=== PATIENT | female | born 1990 | race Caucasian/White ===

== ENCOUNTER 2016-07-30 13:06 | Inpatient (IN) ==
[2016-07-30] MEDS ORDERED: ONDANSETRON 4 MG/2 ML VIAL IV PRN (13:29)
[2016-07-30 13:47] LABS: Basophils % 0.1 % (0.0-0.8); Eosinophils # 0.2 10*3/uL (0.0-0.87); Eosinophils % 2.2 % (0.00-10.9); Hematocrit 29.7 VOL% (35.7-47.0); Hemoglobin 9.2 GM/DL (12.0-16.0); Immature Granulocytes % 0.8 %; Immature Granulocytes Absolute 0.07 #; Lymphocytes # 1.7 10*3/uL (1.4-4.0); Lymphocytes % 18.9 % (21.3-54.2); Mean Corpuscular Hemoglobin 24 PG (27-34); Monocytes # 0.8 10*3/uL (0.11-0.8); Monocytes % 8.7 % (1.7-12.7); Neutrophils # 6.4 10*3/uL (1.4-7.4); Neutrophils % 69.3 % (38.7-73.9); Platelet Count 164 10*3/uL (130-400); Red Blood Count 3.81 10*6/uL (3.8-5.5); Red Cell Distribution Width 15.6 % (9.3-17.3); White Blood Count 9.2 10*3/uL (4.5-13.71)
[2016-07-30 13:56] LABS: INR 0.9; PT Patient Result 9.4 SECS; Partial Thromboplastin Time 26.9 SECS (0-40)
[2016-07-30 14:08] LABS: Alanine Aminotransferase 15 U/L (13-56); Albumin 2.6 G/DL (3.4-5.0); Alkaline Phosphatase 141 U/L (45-117); Aspartate Amino Transferase 17 U/L (0-37); Bilirubin,Total < 0.39 MG/DL (0.2-1.0); Blood Urea Nitrogen 7 MG/DL (7-18); Calcium 8.5 MG/DL (8.5-10.1); Glucose 80 MG/DL (74-106); Osmolality,Calculated 282.8 MOS/KG (273-304); Sodium 144 MMOL/L (136-145); Total Protein 6.1 G/DL (6.4-8.3); Uric Acid 5.1 MG/DL (2.6-6.0)
[2016-07-30] MEDS: BUTORPHANOL 2 MG/ML VIAL IV PRN (20:40)
[2016-07-30] MEDS: LACTATED RINGERS 1,000 ML IV SCH ×4 (20:58→23:05)
[2016-07-30] MEDS ORDERED: PROMETHAZINE 25 MG/1 ML VIAL IM ONE (21:48)
[2016-07-30] MEDS ORDERED: diphenhydrAMINE 50 MG/1 ML VIAL IV PRN ×2 (21:48)
[2016-07-30] MEDS ORDERED: fentaNYL 2 MCG/ROPIV 0.2% EPID 150 ML EPIDURAL SCH (21:48)
[2016-07-30] MEDS ORDERED: ePHEDrine 50 MG/ML AMP IV PRN (21:48)
[2016-07-30] MEDS ORDERED: hydrOXYzine HCL 25 MG/1 ML VIAL IM PRN (21:48)
[2016-07-30] MEDS ORDERED: FAMOTIDINE 20 MG/2 ML VIAL IV ONE (21:50)
[2016-07-30] MEDS ORDERED: CITRIC ACID/SODIUM CITRATE 30 ML UDCUP PO ONE (21:50)
[2016-07-30] MEDS ORDERED: ePHEDrine 50 MG/ML AMP ONE (22:10)
[2016-07-30] MEDS ORDERED: LIDOCAINE 1% 50 ML VIAL ONE (22:55)
[2016-07-30] MEDS ORDERED: OXYTOCIN/LR 20 UNIT/1,000 ML BAG IV ONE (22:55)
[2016-07-30] MEDS ORDERED: METHYLERGONOVINE 0.2 MG/1 ML AMP ONE (22:55)
[2016-07-30] MEDS ORDERED: miSOPROStol 200 MCG TABLET ONE (22:55)
--- NOTE | 2016-07-30 23:40 | History and Physical Update ---
History and Physical Update - Dictation Physical: refer to scanned H&P - Physical Exam Mental Status: alert and oriented Heart: regular rate and rhythm Lung: clear to auscultation Abdomen: within normal limits Vitals: within normal limits (26yo at 39 wks admitted for cytotec induction , followed the last week with variable BPs. EFW on US last week was 8#13oz. Discussed DA with pt and family. Pt wishes to proceed. PIH labs today wnl. )
[2016-07-31] MEDS: BUTORPHANOL 2 MG/ML VIAL IV PRN (00:22)
[2016-07-31] MEDS ORDERED: MEASLES/MUMPS/RUBELLA VACCINE 0.5 ML VIAL SUBCUT ONE (00:44)
[2016-07-31] MEDS ORDERED: BENZOCAINE 20%/MENTHOL 0.5% SPRAY 56 GM CAN TOP PRN (00:44)
[2016-07-31] MEDS ORDERED: DIPH/TET/ACEL PERT BOOSTER VACCINE 0.5 ML VIAL IM ONE (00:44)
[2016-07-31] MEDS ORDERED: RHO(D) IMMUNE GLOBULIN 300 MCG SYRINGE IM ONE (00:44)
[2016-07-31] MEDS ORDERED: ONDANSETRON 4 MG/2 ML VIAL IV PRN (00:44)
[2016-07-31] MEDS ORDERED: ACETAMINOPHEN 325 MG TABLET PO PRN (00:44)
[2016-07-31] MEDS ORDERED: OXYTOCIN/LR 20 UNIT/1,000 ML BAG IV ONE ×2 (00:44→04:03)
[2016-07-31] MEDS ORDERED: WITCH HAZEL PADS 100/JAR TOP PRN (00:44)
[2016-07-31] MEDS ORDERED: HYDROCORTISONE 2.5% RECTAL CREAM 30 GM TUBE TOP PRN (00:44)
[2016-07-31] MEDS ORDERED: BISACODYL 10 MG SUPP RECTAL PRN (00:44)
[2016-07-31] MEDS ORDERED: oxyCODONE/ACETAMINOPHEN 5-325 MG TABLET PO PRN (00:44)
[2016-07-31] MEDS ORDERED: LANOLIN 50% CREAM 0.3 OZ TUBE TOP PRN (00:44)
[2016-07-31 06:44] LABS: Basophils % 0.1 % (0.0-0.8); Eosinophils % 0.1 % (0.00-10.9); Hematocrit 32.4 VOL% (35.7-47.0); Hemoglobin 9.7 GM/DL (12.0-16.0); Immature Granulocytes % 0.7 %; Immature Granulocytes Absolute 0.14 #; Lymphocytes # 1.7 10*3/uL (1.4-4.0); Lymphocytes % 8.8 % (21.3-54.2); Mean Corpuscular HGB Conc 29.9 GM/DL (32-36); Mean Corpuscular Hemoglobin 24 PG (27-34); Mean Corpuscular Volume 78.5 FL (87-102); Mean Platelet Volume 12.3 FL (9.6-12.0); Monocytes # 1.3 10*3/uL (0.11-0.8); Monocytes % 6.6 % (1.7-12.7); Neutrophils # 16.4 10*3/uL (1.4-7.4); Neutrophils % 83.7 % (38.7-73.9); Platelet Count 168 10*3/uL (130-400); Red Blood Count 4.13 10*6/uL (3.8-5.5); Red Cell Distribution Width 15.7 % (9.3-17.3); White Blood Count 19.6 10*3/uL (4.5-13.71)
[2016-07-31] MEDS: IBUPROFEN 800 MG TABLET PO PRN ×2 (09:14→17:46)
[2016-07-31] MEDS: oxyCODONE/ACETAMINOPHEN 5-325 MG TABLET PO PRN ×2 (13:05→14:15)
[2016-07-31] MEDS: DOCUSATE SODIUM 100 MG CAPSULE PO SCH (20:46)
[2016-08-01 07:35] VITALS: BP 120/72
--- NOTE | 2016-08-01 08:17 | OB/GYN Progress Note ---
Assessment and Plan (1) Perineal laceration with delivery, second degree Status: Acute Assessment and plan: Routine care Current Visit: Yes WIRE ANNEALER - PN: Subj Interval history: PPD#1 Doing well Exam WIRE ANNEALER - Constitutional Vitals: Vital Signs Temp Pulse Resp BP Pulse Ox 08/01/16 07:34 96.1 F L 69 18 120/72 97 08/01/16 04:00 98.0 F 69 20 132/78 98 08/01/16 00:00 98.1 F 68 20 137/74 98 07/31/16 20:00 97.4 F L 63 20 135/71 98 07/31/16 15:40 98.4 F 69 20 133/79 98 07/31/16 14:30 98.0 F 78 20 137/72 96 07/31/16 13:55 97.2 F L 71 20 134/78 General appearance: normal weight, no acute distress - Head Head exam: Present: normal inspection, normocephalic - Eye Eye exam: Present: EOMI - Respiratory Respiratory exam: Present: clear to auscultation bilaterally - Cardiovascular Cardiovascular exam: Present: regular rate and rhythm - GI/Abdominal GI/Abdominal exam: Present: soft (fundus firm, nontender) - Extremities Exam Extremities exam: Present: normal inspection - Neurological Exam Neurological exam: Present: alert, oriented X3 - Psychiatric Psychiatric exam: Present: normal affect, normal mood - Skin Skin exam: Present: normal color, warm Results - Labs CBC & BMP: 07/31/16 06:17 07/30/16 13:41 Lab Results: I have reviewed the past 24 hour labs
[2016-08-01] MEDS: DOCUSATE SODIUM 100 MG CAPSULE PO SCH (09:45)
--- NOTE | 2016-08-01 13:20 | Pathology Report from [facility] ---
ACCESSION # : [id number] PATIENT NAME : Shell Vidal ORDERING DR : EMMY GRANT CLINICAL HX: IUP @ 39.3 wks, large for gestational age, induction of labor POST-OP DX: Same SPECIMEN INFO: Placenta GROSS DESCRIPTION: Received fresh labeled with the patient's name and consists of a 509 gram placenta measuring 18.6 x 19.0 x 2.5 cm. membranes are pink -benedict opaque with clotted blood. The umbilical cord is pericentrally inserted, contains three vessels and measures 26.2 cm. The surface is blue-pierce, partially circumarginate. The maternal surface is beefy red with mild disrupted cotyledons and adherent clotted blood. Scattered calcifications and some areas of fibrosis are present. Sectioning shows no gross abnormalities. Sections submitted: A membranes and cord, B and maternal surfaces. DIAGNOSIS FOR SHELL VIDAL: PLACENTA, MEMBRANES, UMBILICAL CORD: Focal placental infarction with mild intervillous blood and attached fibrin. Tri- vessel umbilical cord, pericentrally inserted. Membranes with focal acute and chronic inflammation and attached blood. SERVICE DATE: 07/31/2016 REPORT DATE: 08/01/2016 PATHOLOGIST: David Middleton
--- NOTE | 2016-08-01 20:12 | Discharge Summary ---
Hospital Course - Hospital Course Hospital Course: Pt admitted on the early afternoon of 07/30/16 for induction with gestational HTN at 39 wks. She delivered just after midnight on 07/31/16 without complications. Her course was unremarkable except that she did very well. She was requesting discharge on the late afternoon of 08/01/16. Diagnosis - Discharge Diagnosis (1) Perineal laceration with delivery, second degree Status: Acute Specialty Discharge - Follow Up or Referrals Follow up with: Jennifer Shukla DO [Physician] - 09/11/16 1:00 pm Discharge Plan - Discharge Data Condition at Discharge: Stable Discharge Diet: regular diet Activity: other (pelvic rest x 6 wks) Hygiene: may shower Weight Bearing at Discharge: full weight bearing Driving: no restrictions (if not taking narcotics) Contact your physician if you experience:: fever over 101, Difficulty voiding, Redness or swelling, Nausea/Vomiting, Shortness of breath, Bleeding, pain uncontrolled by pain medications - Discharge Medications No Action Multivitamin () [ Vitamin] 1 tablet PO DAILY - Follow Up or Referral Follow Up: Jennifer Shukla DO [Physician] - 09/11/16 1:00 pm - Forms/Instructions Instructions: Perineal Care (DC), Vaginal Delivery (DC), Bleeding (DC) Exam - Constitutional Vitals: Period Temp Pulse Resp BP Sys/Espinoza Pulse Ox Last 24 Hr 96.1 F-98.1 F 68-69 18-20 120-137/72-78 97-98 General appearance: normal weight, no acute distress - Head Head exam: Present: normal inspection, normocephalic - Eye Eye exam: Present: EOMI - Respiratory Respiratory exam: Present: clear to auscultation bilaterally - Cardiovascular Cardiovascular exam: Present: regular rate and rhythm - GI/Abdominal GI/Abdominal exam: Present: soft (fundus firm, nontender) - Extremities Exam Extremities exam: Present: normal inspection - Neurological Exam Neurological exam: Present: alert, oriented X3 - Psychiatric Psychiatric exam: Present: normal affect, normal mood - Skin Skin exam: Present: normal color, warm DS: Provider Date of admission: 07/30/16 13:06 Primary care physician: . No PCP Attending physician on admission: Jennifer Shukla DO Consults: 07/30/16 13:29 Consult to Anesthesiology [CONS] Routine Consulting Provider: Reason for Anesthesiology: Epidural Consult Comment: Epidural for pain managment 07/31/16 00:44 Consult to Vehicle Safety Inspector [CONS] Routine Consult Vehicle Safety Inspector: Breast Feeding Discharging clinician: Jennifer Shukla DO Expected date of discharge: 07/31/16
--- NOTE | 2016-08-02 10:46 | Physician Query Form ---
CLICK EDIT DOCUMENT TO SELECT QUERY ANSWER --> OK --> SIGN Jennifer Preciado RN, CCDS Certified Clinical Digital Publishing Specialist Director of Clinical Documentation W) [phone] (f) [phone] [email or web address]: Make your selection(s) from the choices in EACH section by typing an "x" and enter comments in the comment section. Please use your independent medical judgment in providing your response. This request does not imply that any particular answer is desired or expected. CLINICAL INDICATORS: (Providers should not edit this section) Patient delivered viable male with assistance of Kiwi vacuum assistance due to "ineffective pushing and excessive discomfort". Can you please specify the reason for vacuum assistance? Based on the above, could you clarify the appropriate diagnosis, if significant , that supports the above abnormalities and additional evaluation, monitoring, and/or treatment rendered: (x ) Maternal exhaustion ( ) distress (x) Incoordinate uterine contractions/pushing ( ) Labor complications, please specify: (x ) Other, please specify: ( ) Clinically unable to determine COMMENTS: Despite epidural pt was having significant discomfort with contractions and was not moving baby well with her pushing. She was offered Kiwi vacuum assistance and she was eager for assistance. Use of terms such as suspected, likely, or probable (associated with a specific diagnosis that is being evaluated, monitored, or treated as if it exists) are acceptable and can be restated in the discharge summary if not ruled out. MTDD
== END 2016-08-01 16:15 | disposition home or self-care (01) | DRG 775 ==
LOC: N.LD 13:06 → N.OB 07-31 13:46
PROVIDERS: ADMIT Obstetrics & Gynecology; ATTEND Obstetrics & Gynecology

== ENCOUNTER 2022-08-29 05:13 | Inpatient (IN) ==
[2022-08-29] MEDS ORDERED: TRANEXAMIC ACID 1,000 MG in SODIUM CHLORIDE 0.9% 100 ML IV PRN (05:28)
[2022-08-29] MEDS ORDERED: miSOPROStoL 200 MCG TABLET RECTAL PRN (05:28)
[2022-08-29] MEDS ORDERED: METHYLERGONOVINE 0.2 MG/1 ML AMP IM PRN (05:28)
[2022-08-29] MEDS ORDERED: OXYTOCIN/LR 20 UNIT/1,000 ML BAG IV ONE ×2 (05:28→08:52)
[2022-08-29] MEDS ORDERED: CARBOPROST TROMETHAMINE 250 MCG/ML AMP IM PRN (05:28)
[2022-08-29] MEDS ORDERED: FAMOTIDINE 20 MG/2 ML VIAL IV ONE (05:28)
[2022-08-29] MEDS ORDERED: CITRIC ACID/SODIUM CITRATE 30 ML UDCUP PO ONE (05:28)
[2022-08-29] MEDS ORDERED: LACTATED RINGERS 1,000 ML IV SCH ×2 (05:30→09:00)
[2022-08-29 06:04] LABS: Basophils % 0.2 % (0.0-0.8); Eosinophils # 0.2 10*3/uL (0.0-0.87); Eosinophils % 2.1 % (0.00-10.9); Hematocrit 29.8 VOL% (35.7-47.0); Hemoglobin 9.1 GM/DL (12.0-16.0); Immature Granulocytes % 0.9 %; Immature Granulocytes Absolute 0.08 #; Lymphocytes # 2.1 10*3/uL (1.4-4.0); Lymphocytes % 23.4 % (21.3-54.2); Mean Corpuscular HGB Conc 30.5 GM/DL (32-36); Mean Corpuscular Volume 77.6 FL (87-102); Mean Platelet Volume 13.3 FL (9.6-12.0); Monocytes # 0.7 10*3/uL (0.11-0.8); Monocytes % 7.4 % (1.7-12.7); NRBC # 0.03 10*3/uL; Platelet Count 162 T/CUMM (130-400); Red Blood Count 3.84 MC/CUMM (3.8-5.5); Red Cell Distribution Width 15.9 % (9.3-17.3); White Blood Count 9.05 T/CUMM (4-12)
[2022-08-29 06:17] LABS: Alanine Aminotransferase 13 U/L (13-56); Albumin 2.5 G/DL (3.4-5.0); Alkaline Phosphatase 97 U/L (45-117); Aspartate Amino Transferase 13 U/L (0-37); Bilirubin,Total < 0.39 MG/DL (0.20-1.00); Blood Urea Nitrogen 11 MG/DL (7-18); Calcium 9.1 MG/DL (8.5-10.1); Carbon Dioxide 19 MMOL/L (21-32); Chloride 110 MMOL/L (98-107); Glucose 94 MG/DL (74-106); Osmolality,Calculated 279.3 MOS/KG (273-304); Potassium 3.9 MMOL/L (3.5-5.1); Sodium 141 MMOL/L (136-145); Total Protein 6.3 G/DL (6.4-8.2)
[2022-08-29] MEDS ORDERED: buprenorphine HCL 0.3 MG/ML VIAL ONE (06:44)
[2022-08-29] MEDS ORDERED: PHENYLEPHRINE 1 MG/10 ML SYRINGE IV ONE (06:46)
[2022-08-29] MEDS ORDERED: ONDANSETRON 4 MG/2 ML VIAL ONE (06:46)
[2022-08-29 08:20] LABS: Cord Venous Blood HCO3 22.5 MMOL/L; Cord Venous Blood PCO2 30.3 MMHG; Cord Venous Blood PO2 25.1
[2022-08-29 08:20] LABS: Bacteria,Urine Occasional /HPF (Few); Mucus,Urine Occasional /LPF (Occasional); RBC,Urine 1 /HPF (0-4); Squamous Epithelial Cell,Urine Occasional /HPF (0-10)
[2022-08-29 08:21] LABS: Bilirubin,Urine Negative (Negative); Blood, Urine Negative (Negative); Glucose,Urine (UA) Negative (Negative); Ketones,Urine Trace mg/dL (Negative); Nitrite,Urine Negative (Negative); Protein,Urine 100 mg/dL (Negative); Urine Appearance Clear (Clear); Urine Color Yellow (Yellow); Urine Specific Gravity 1.025 (1.001-1.035); Urine Urobilinogen 0.2 eU/dL (<2.0)
[2022-08-29] MEDS ORDERED: ACETAMINOPHEN INJ 1,000 MG/100 ML VIAL IV ONE (08:48)
[2022-08-29] MEDS ORDERED: KETOROLAC 30 MG/1 ML VIAL ONE (08:48)
[2022-08-29] MEDS ORDERED: ONDANSETRON 4 MG/2 ML VIAL IV PRN (08:52)
[2022-08-29] MEDS ORDERED: RHO(D) IMMUNE GLOBULIN 300 MCG SYRINGE IM ONE (08:52)
[2022-08-29] MEDS ORDERED: SIMETHICONE CHEW 80 MG TABLET PO PRN (08:52)
[2022-08-29] MEDS ORDERED: ACETAMINOPHEN 325 MG TABLET PO PRN (08:52)
[2022-08-29] MEDS: MULTIVITAMIN (PRENATAL) TABLET PO SCH (12:06)
[2022-08-29] MEDS ORDERED: KETOROLAC 30 MG/1 ML VIAL IV ONE (16:30)
[2022-08-29 20:40] LABS: Basophils % 0.3 % (0.0-0.8); Eosinophils # 0.2 10*3/uL (0.0-0.87); Eosinophils % 1.3 % (0.00-10.9); Hematocrit 25.3 VOL% (35.7-47.0); Hemoglobin 7.7 GM/DL (12.0-16.0); Immature Granulocytes % 0.5 %; Immature Granulocytes Absolute 0.06 #; Lymphocytes % 17.2 % (21.3-54.2); Mean Corpuscular HGB Conc 30.4 GM/DL (32-36); Mean Corpuscular Volume 78.1 FL (87-102); Mean Platelet Volume 12.6 FL (9.6-12.0); Monocytes # 0.8 10*3/uL (0.11-0.8); Monocytes % 6.9 % (1.7-12.7); Neutrophils % 73.8 % (38.7-73.9); Platelet Count 119 T/CUMM (130-400); Red Blood Count 3.24 MC/CUMM (3.8-5.5); Red Cell Distribution Width 15.9 % (9.3-17.3); White Blood Count 11.37 T/CUMM (4-12)
[2022-08-29] MEDS: DOCUSATE SODIUM 100 MG CAPSULE PO SCH (20:58)
[2022-08-30] MEDS: DOCUSATE SODIUM 100 MG CAPSULE PO SCH ×3 (01:16→21:03)
[2022-08-30 03:30] LABS: Basophils % 0.3 % (0.0-0.8); Eosinophils # 0.2 10*3/uL (0.0-0.87); Eosinophils % 1.9 % (0.00-10.9); Hemoglobin 7.5 GM/DL (12.0-16.0); Immature Granulocytes % 0.6 %; Immature Granulocytes Absolute 0.06 #; Lymphocytes % 19.3 % (21.3-54.2); Mean Corpuscular Volume 78.4 FL (87-102); Mean Platelet Volume 12.4 FL (9.6-12.0); Monocytes # 0.8 10*3/uL (0.11-0.8); Monocytes % 8.1 % (1.7-12.7); Neutrophils % 69.8 % (38.7-73.9); Platelet Count 115 T/CUMM (130-400); Red Blood Count 3.19 MC/CUMM (3.8-5.5); Red Cell Distribution Width 15.9 % (9.3-17.3); White Blood Count 10.37 T/CUMM (4-12)
[2022-08-30] MEDS ORDERED: oxyCODONE/ACETAMINOPHEN 5-325 MG TABLET PO PRN (08:19)
[2022-08-30] MEDS: oxyCODONE/ACETAMINOPHEN 5-325 MG TABLET PO PRN ×3 (08:34→22:35)
[2022-08-30] MEDS: IBUPROFEN 800 MG TABLET PO PRN (10:28)
[2022-08-30] MEDS: MULTIVITAMIN (PRENATAL) TABLET PO SCH (10:28)
[2022-08-30] MEDS: FERROUS SULFATE 325 MG TABLET PO SCH ×2 (10:28→21:03)
[2022-08-30] MEDS: MAGNESIUM HYDROXIDE SUSP 30 ML UDCUP PO PRN (21:03)
[2022-08-31] MEDS: MAGNESIUM HYDROXIDE SUSP 30 ML UDCUP PO PRN (05:34)
[2022-08-31] MEDS: IBUPROFEN 800 MG TABLET PO PRN (05:34)
[2022-08-31 07:41] VITALS: BP 121/63
[2022-08-31] MEDS: oxyCODONE/ACETAMINOPHEN 5-325 MG TABLET PO PRN (07:57)
[2022-08-31] MEDS: FERROUS SULFATE 325 MG TABLET PO SCH (08:19)
[2022-08-31] MEDS: DOCUSATE SODIUM 100 MG CAPSULE PO SCH (08:19)
[2022-08-31] MEDS: MULTIVITAMIN (PRENATAL) TABLET PO SCH (08:19)
== END 2022-08-31 12:55 | disposition home or self-care (01) | DRG 788 ==
LOC: N.LD 05:13 → N.OB 11:58
PROVIDERS: ADMIT Obstetrics & Gynecology; ATTEND Obstetrics & Gynecology
PROC: LDCSECT (ICD-10-PCS; 2022-08-29 07:30)